=== PATIENT | female | born 1935 | race American Indian/Alaskan Native ===

== ENCOUNTER 2016-06-21 07:20 | Emergency (ER) | payer MEDICARE, MEDICAID ==
[2016-06-21 07:29] VITALS: BMI 33.2
[2016-06-21 07:32] VITALS: RESP 20
--- NOTE | 2016-06-21 08:06 | C.PDOC ---
History Of Present Illness 80 y/o female pmhx arthritis presents to the ED with complains of butt and hip pain. Pt states she was walking to the bathroom this morning when her legs felt suddenly weak and gave out, she gradually slid down the wall to the ground; witnessed by sister who is now at bedside. Pt now complaining of bilateral hip and butt pain; admits has had similar episode in the past. Pt also reports "feeling under the weather" x2 days with generalized body aches, feeling feverish and tired. Pt states her neighbor has the flu. Denies dizziness, numbness, SOB, cough, vomiting, diarrhea or any other complaints. Time Seen by Provider: 06/21/16 07:34 Chief Complaint (Nursing): Back Pain History Per: Patient History/Exam Limitations: no limitations Onset/Duration Of Symptoms: Hrs Current Symptoms Are (Timing): Still Present Quality Of Discomfort: "Pain" Severity: Mild Associated Symptoms: None Recent travel outside of the [place]: No Past Medical History Reviewed: Historical Data, Nursing Documentation, Vital Signs Vital Signs: Last Vital Signs Temp 99.1 F 06/21/16 09:55 Pulse 85 06/21/16 09:55 Resp 20 06/21/16 09:55 BP 92/59 L 06/21/16 09:55 Pulse Ox 98 06/21/16 09:55 - Medical History PMH: Arthritis, Back Problems, HTN Family History: States: Unknown Family Hx - Social History Hx Alcohol Use: No Hx Substance Use: No - Immunization History Hx Tetanus Toxoid Vaccination: No Hx Influenza Vaccination: No Hx Pneumococcal Vaccination: No Review Of Systems Except As Marked, All Systems Reviewed And Found Negative. Constitutional: Positive for: Fever, Other (body aches, fatigue) Respiratory: Negative for: Cough, Shortness of Breath Gastrointestinal: Negative for: Vomiting, Diarrhea Musculoskeletal: Positive for: Other (bilateral hip and butt pain) Neurological: Negative for: Numbness, Headache, Dizziness Physical Exam - Physical Exam Appears: Non-toxic, No Acute Distress Skin: Warm, Dry, No Rash Head: Atraumatic, Normacephalic Neck: Normal ROM, Supple Chest: Symmetrical, No Tenderness Cardiovascular: Rhythm Regular, No Murmur Respiratory: Normal Breath Sounds, No Rales, No Rhonchi, No Wheezing Gastrointestinal/Abdominal: Soft, No Tenderness Extremity: Normal ROM, Tenderness (mild nonfocal bilateral hip tenderness, sacral tenderness), No Deformity, Other (No ecchymosis, no hematoma) Pulses: Left Dorsalis Pedis: Normal, Right Dorsalis Pedis: Normal Neurological/Psych: Oriented x3, Normal Speech, Normal Motor, Normal Sensation ED Course And Treatment O2 Sat by Pulse Oximetry: 96 (on room air) Pulse Ox Interpretation: Normal Medical Decision Making Medical Decision Making: Plan: * XR bilateral hips * flu swab * ibuprofen Progress: Flu test was negative XRay reviewed by me and interpreted by Radiologist Bettye Mejia IMPRESSION:No radiographic evidence of acute fracture or dislocation. Moderate osteoarthritic degenerative changes. Patient remained alert and oriented in no distress. She reports pain mild at this time. I explain xray results and patient stable for discharge. Recommend analgesics as needed and to follow up with PCP Disposition Counseled Patient/Family Regarding: Diagnosis, Need For Followup, Rx Given - Disposition Referrals: Harish Ryan DO [Staff Provider] - Disposition: HOME/ ROUTINE Disposition Time: 09:43 Condition: STABLE Additional Instructions: Your Flu test was negative XRay shows arthritis otherwise no acute fracture Please take ibuprofen as needed for pain and rest Follow up with your primary or orthopedic if pain persists. Prescriptions: Ibuprofen [Motrin] 600 mg PO Q8 #30 tab Instructions: Hip Contusion (ED) - POA Present On Arrival: Falls Or Trauma - Clinical Impression Clinical Impression: Contusion of back, Contusion, hip - PA / SCRUB NURSE / Resident Statement MD/DO has reviewed & agrees with the documentation as recorded. - Scribe Statement The provider has reviewed the documentation as recorded by the Jose Segovia All medical record entries made by the Jose were at my direction and personally dictated by me. I have reviewed the chart and agree that the record accurately reflects my personal performance of the history, physical exam, medical decision making, and the department course for this patient. I have also personally directed, reviewed, and agree with the discharge instructions and disposition.
[2016-06-21 09:56] VITALS: BP 92/59; PULSE 85; TEMP 99.1
--- NOTE | 2016-06-21 10:06 | RAD ---
PROCEDURE: Radiographs of the pelvis and bilateral hips HISTORY: pt reports fall at home complains of pain COMPARISON: None. FINDINGS: BONES: Pelvis: Unremarkable. Right hip:No evidence of dislocation Left hip:Unremarkable. JOINTS: Right hip: Moderate osteoarthritic changes Left hip: Moderate osteoarthritic changes Sacroiliac Joints: Arthritic degenerative changes Pubic symphysis: Unremarkable. SOFT TISSUES: Normal. OTHER FINDINGS: None. IMPRESSION: No radiographic evidence of acute fracture or dislocation. Moderate osteoarthritic degenerative changes.
[2016-06-21 14:51] VITALS: O2SAT 96
== END 2016-06-21 10:17 | disposition home or self-care (01) ==
LOC: C.ER 07:20
DX: S70.02XA Contusion of left hip, initial encounter (principal); S70.01XA Contusion of right hip, initial encounter; S30.0XXA Contusion of lower back and pelvis, initial encounter; W18.39XA Other fall on same level, initial encounter; Y92.008 Other place in unspecified non-institutional (private) residence as the place of occurrence of the external cause

== ENCOUNTER 2016-06-21 19:02 | Emergency (ER) | payer MEDICARE, OTHER ==
[2016-06-21 19:02] VITALS: BMI 37.0
[2016-06-21] MEDS ORDERED: Sodium Chloride 0.9% 1,000 ML IV ONE (20:45)
[2016-06-21] MEDS ORDERED: Iohexol 240 (50 ml) PO STA (20:45)
--- NOTE | 2016-06-21 20:48 | C.PDOC ---
History Of Present Illness 80 y/o female with PMHx of HTN, hyperlipidemia, and DM, returns to ED after emergency room evaluation for back pain earlier today. Patient reportedly sustained a mild "fall" this morning, stating that her legs gave out, causing her to land on the floor on her buttocks/hip. Patient was discharged with Motrin after negative x-rays earlier today. Patient complains of muscle spasms that have been persistent today, and reports abdominal pain that radiates to her lower back. Patient reports she has not had a bowel movement for 7 days but notes that she has been passing gas w/o difficulty. She notes her last meal was yesterday. Patient describes abdominal pain as 8/10 and cramping. Patient also states she had a subjective fever last week which has since resolved. Otherwise , denies chills, headache, chest pain, SOB, nausea, vomiting, diarrhea, urinary symptoms. Denies prior abdominal surgeries. Patient notes she is currently taking Plavix but is unsure why. Denies recent travel. Time Seen by Provider: 06/21/16 19:50 Chief Complaint (Nursing): Abdominal Pain History Per: Patient History/Exam Limitations: no limitations Onset/Duration Of Symptoms: Hrs, Persistent Current Symptoms Are (Timing): Still Present Pain Scale Rating Of: 8 Location Of Pain/Discomfort: Diffuse Radiation Of Pain To:: Back Quality Of Discomfort: Cramping, "Pain" Associated Symptoms: denies: Fever, Chills, Vomiting, Diarrhea, Urinary Symptoms Last Bowel Movement: Days Ago Recent travel outside of the [place]: No Abnormal Vaginal Bleeding: No Past Medical History Reviewed: Historical Data, Nursing Documentation, Vital Signs Vital Signs: Last Vital Signs Temp 98.7 F 06/21/16 19:20 Pulse 102 H 06/21/16 19:20 Resp 18 06/21/16 19:20 BP 98/67 L 06/21/16 19:20 Pulse Ox 97 06/22/16 00:31 - Medical History PMH: Arthritis, Back Problems, HTN Family History: States: Unknown Family Hx - Social History Hx Alcohol Use: No Hx Substance Use: No - Immunization History Hx Tetanus Toxoid Vaccination: No Hx Influenza Vaccination: No Hx Pneumococcal Vaccination: No Review Of Systems Except As Marked, All Systems Reviewed And Found Negative. Constitutional: Positive for: Malaise. Negative for: Fever, Chills Cardiovascular: Negative for: Chest Pain Respiratory: Negative for: Shortness of Breath Gastrointestinal: Positive for: Abdominal Pain, Constipation. Negative for: Vomiting, Diarrhea Musculoskeletal: Positive for: Back Pain Skin: Negative for: Rash Physical Exam - Physical Exam Appears: Non-toxic, In Acute Distress Skin: Normal Color, Warm, Dry Head: Atraumatic, Normacephalic Oral Mucosa: Moist Chest: Symmetrical Cardiovascular: Rhythm Regular Respiratory: Normal Breath Sounds, No Rales, No Rhonchi, No Wheezing Gastrointestinal/Abdominal: Bowel Sounds (slightly diminished), Soft, Tenderness (mild, to deep palpation ), Distention, No Guarding, No Rebound, Hernia (umbilical, reducible) Back: Normal Inspection Extremity: Normal ROM, Capillary Refill (< 2 sec. ) Neurological/Psych: Oriented x3, Normal Speech, Normal Cognition ED Course And Treatment - Laboratory Results Result Diagrams: 06/21/16 22:10 06/21/16 22:10 Lab Interpretation: Abnormal (WBC 1.7 with 78% segs, BUN 36, Cr 1.7, HCO3 17, mild elevation of LFTs compared to prior exam) O2 Sat by Pulse Oximetry: 97 (RA) Pulse Ox Interpretation: Normal - CT Scan/US CT Abdomen/Pelvis Other Rad Studies (CT/US): Read By Radiologist, Radiology Report Reviewed CT/US Interpretation: IMPRESSION: Early/partial small bowel obstruction; cardiomegaly and atherosclerotic disease;. patchy airspace disease at both lung bases; fecal impaction Progress Note: Labs, UA, CT abdomen/pelvis ordered. IVFs given. Reevaluation Time: 00:36 Reassessment Condition: Unchanged (Patient continues to be in distress. She has passed a cpious amount of a yellowish brown semi-liquid stool. She continues to c/o abdominal pain but her abdomen remains soft. VBG ordered to check lactate to r/o ischemic bowel.) - Physician Consult Information Time Consulting Physician Contacted: 00:37 Physician Contacted: Awais Springer Outcome Of Conversation: Patient to be admitted for evaluation and treatment of abdominal pain, possible bowel obstruction or ischemic bowel. Disposition - Disposition Disposition: HOSPITALIZED Disposition Time: 00:38 Condition: SERIOUS - POA Present On Arrival: None - Clinical Impression Clinical Impression: Abdominal pain, Partial small bowel obstruction - Scribe Statement The provider has reviewed the documentation as recorded by the Jose Vega Provider Scribe Attestation: All medical record entries made by the Scribe were at my direction and personally dictated by me. I have reviewed the chart and agree that the record accurately reflects my personal performance of the history, physical exam, medical decision making, and the department course for this patient. I have also personally directed, reviewed, and agree with the discharge instructions and disposition.
[2016-06-21] MEDS ORDERED: Iohexol 240 (50 ml) ONE (21:36)
[2016-06-21 22:22] LABS: BASO % 0.7 % (0.0-2.0); EOS % 0.4 % (0.0-4.0); LYMPH # 0.3 K/uL (1.0-4.3); LYMPH % 19.3 % (20.0-40.0); MEAN CELL VOLUME 87.8 fL (81.0-99.0); MEAN CORPUSCULAR HEMOGLOBIN 28.5 pg (27.0-31.0); MEAN CORPUSCULAR HGB CONC 32.5 g/dL (33.0-37.0); MEAN PLATELET VOLUME 8.7 fL (7.2-11.7); MONO % 0.7 % (0.0-10.0); NRBC % 0.8 % (0.0-2.0); POTASSIUM 3.3 mmol/L (3.6-5.2)
[2016-06-21 22:24] LABS: ALB/GLOB RATIO 1.2 (1.0-2.1); BILIRUBIN,TOTAL 0.8 mg/dL (0.2-1.3); TOTAL PROTEIN 6.7 g/dL (6.3-8.3)
[2016-06-21 22:25] LABS: CALCIUM 8.6 mg/dl (8.6-10.4)
[2016-06-21 22:28] LABS: WHITE BLOOD COUNT 1.7 K/uL (4.8-10.8)
[2016-06-21 22:30] LABS: PLATELET COUNT 118 K/uL (130-400)
--- NOTE | 2016-06-21 23:51 | CT ---
EXAM: CT Abdomen and Pelvis Without Intravenous Contrast CLINICAL HISTORY: 80 years old, female; Pain; Abdominal pain; Generalized; Additional info: Abd pain TECHNIQUE: Axial computed tomography images of the abdomen and pelvis without intravenous contrast. Coronal and sagittal reformatted images were created and reviewed. EXAM DATE/TIME: 06/21/2016 8:46 PM COMPARISON: There are no prior studies for comparison. FINDINGS: Artifacts: Motion artifact degrades image quality. Lower thorax: The heart is enlarged. Aorta is ectatic. There is atelectasis and scarring at the lung bases. There is airspace disease at both lung bases. There is oral contrast in the mid and distal esophagus. ABDOMEN: Liver: There is fatty infiltration of the liver. Gallbladder and bile ducts: Gallbladder is distended. Common bile duct is poorly demonstrated. Pancreas: Pancreas is mildly atrophic. Spleen: There is a cyst in the spleen. Adrenals: There is thickening of both adrenals. Kidneys and ureters: Kidneys and ureters are unremarkable. Stomach and bowel: Stomach is partially distended. Rotation is normal. Mid small bowel is mildly dilated. There are air fluid levels. Distal small bowel is normal in caliber. Terminal ileum is unremarkable. Appendix is unremarkable.Colon is incompletely distended which limits evaluation.There is diverticulosis. There is a fecal bolus in the rectum. Appendix: See stomach and bowel PELVIS: Bladder: unremarkable Reproductive: Uterus and adnexal structures are unremarkable. ABDOMEN and PELVIS: Intraperitoneal space: .There is no significant fluid.There is no free air. Bones/joints: Bony structures are osteopenic. There are degenerative changes. There is retrolisthesis T11 on T12, T12-L1 and L1 on L2. There is narrowing of the associated disc spaces. There is anterolisthesis L5 on S1 with degenerative change. 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 Soft tissues: There is a fat-containing umbilical hernia. There is a fat-containing supraumbilical ventral hernia. Vasculature: There are multiple phleboliths. Aorta is ectatic. There are vascular calcifications. There is infrarenal dilatation, 2.8 cm in maximal diameter. Lymph nodes: unremarkable IMPRESSION: Early/partial small bowel obstruction; cardiomegaly and atherosclerotic disease; patchy airspace disease at both lung bases; fecal impaction Additional findings as described above.
[2016-06-22] MEDS ORDERED: HYDROmorphone 1 mg/ml ISec IVP STA (00:33)
[2016-06-22] MEDS ORDERED: Dextrose 50% SYRINGE Inj (50 ml) ONE ×2 (01:08→01:13)
[2016-06-22] MEDS ORDERED: Sodium Bicarbonate 8.4% 150 MEQ in Dextrose 5% In Water 1,000 ML IV SCH (02:15)
[2016-06-22] MEDS ORDERED: Piperacill/Tazo 3.375gm in Dex 50 ML IVPB SCH (02:15)
[2016-06-22] MEDS ORDERED: Sodium Bicarbonate (8.4%) 50 Meq Syringe IV ONE (02:54)
[2016-06-22] MEDS ORDERED: Dextrose 50% SYRINGE Inj (50 ml) IV ONE (02:54)
[2016-06-22 02:55] LABS: NEUTROPHIL 76 % (50-75); NUCLEATED RED BLOOD CELL 1 % (0-0); TOTAL CELLS COUNTED 100
[2016-06-22 02:56] LABS: GIANT PLATELETS PRESENT; LARGE PLATELETS PRESENT
--- NOTE | 2016-06-22 02:59 | CP.PCM.PRO ---
<Khadra Mcdaniel DO - Last Filed: 06/22/16 06:10> Pronouncement of Note - Clinical Findings Physical Exam: Absent Peripheral Pulses{Carotid & Femoral}, Absent Heart & Breath Sounds, No Pupillary Light Reflex, Pupils Fixed & Dilated - Pronouncement Time Time of Pronouncement of : 02:55 - Notifications Pronouncement Notifications: Family Notified, Atending Notified - [place] [id number] <Awais Springer P - Last Filed: 06/25/16 20:25> Attending/Attestation - Attestation I have personally seen and examined this patient.: Yes I have fully participated in the care of the patient.: Yes I have reviewed all pertinent clinical information: Yes
[2016-06-22 03:46] VITALS: TEMP 98.2
[2016-06-22 03:50] VITALS: BP 127/32
[2016-06-22 04:00] VITALS: PULSE 75; RESP 25; O2SAT 93
[2016-06-22 05:59] LABS: ABG MECHANICAL RATE 14; ATERIAL BLOOD GAS PEEP 5; DRAW SITE RFEM
--- NOTE | 2016-06-22 06:11 | CP.PCM.HP ---
<VioletaKhadra borges DO - Last Filed: 06/22/16 08:56> History of Present Illness - History of Present Illness History of Present Illness: Patient is a 80 year old female with past medical history of diabetes, HTN, HLD who initially presented with complaint of abdominal pain. History is obtained from the chart. Patient stated the abdominal pain was cramping in nature and the pain radiated to lower back. Patient reported constipation for 7 days but did report passing gas. Patient had been previously seen in the ER for buttock pain after a fall at home. Otherwise, denies chills, headache, chest pain, SOB , nausea, vomiting, diarrhea, urinary symptoms. Denies prior abdominal surgeries. Patient notes she is currently taking Plavix but is unsure why. Denies recent travel. At time of examination, patient was intubated in the ER. Patient had been found by ER nurse to have heart rate in 40s. Fingerstick at that time showed glucose of <20. Patient was given IV dextrose but continued to be hypoglycemic. CPR was initiated and patient was given atropine and epinephrine. Pulses returned initially following intervention and HR was 120. Patient became bradycardic again in the ER and CPR was again initiated. ABG was checked and lactate was 17.4. Patient was given multiple rounds of bicarb. There was no ROSC in fourth code and patient was pronounced at 2:55AM on . Examination was conducted after first code and ROSC Present on Admission - Present on Admission Any Indicators Present on Admission: No Review of Systems - Review of Systems Systems not reviewed;Unavailable: Acuity of Condition Past Patient History - Past Social History Smoking Status: Never Smoked - CARDIAC Hx Hypertension: Yes - ENDOCRINE/METABOLIC Hx Endocrine Disorders: Yes Hx Diabetes Mellitus Type 2: Yes - MUSCULOSKELETAL/RHEUMATOLOGICAL Hx Arthritis: Yes - PSYCHIATRIC Hx Substance Use: No - SURGICAL HISTORY Hx Surgeries: No - ANESTHESIA Hx Anesthesia: No Meds Allergies/Adverse Reactions: Allergies Allergy/AdvReac Type Severity Reaction Status Date / Time No Known Allergies Allergy Verified 06/21/16 19:27 Physical Exam - Constitutional Additional comments: intubated - Eye Exam Additional comments: pupils fixed and dilated - ENT Exam Additional comments: OG tube with dark/ blood tinged secretions - Respiratory Exam Additional comments: ventilator sounds throughout - Cardiovascular Exam Cardiovascular Exam: +S1, +S2 - GI/Abdominal Exam GI & Abdominal Exam: Distended Additional comments: no bowel sounds were auscultated reducible umbilical hernia - Extremities Exam Extremities exam: Positive for: pedal edema (bilateral lower extremity edema) Results - Vital Signs Recent Vital Signs: Last Vital Signs Temp 98.2 F 06/21/16 23:35 Pulse 75 06/22/16 03:59 Resp 25 H 06/22/16 03:59 BP 127/32 L 06/22/16 03:50 Pulse Ox 93 L 06/22/16 03:59 - Labs Result Diagrams: 06/21/16 22:10 06/21/16 22:10 Labs: Laboratory Results - last 24 hr 06/22/16 06/22/16 06/22/16 01:06 01:08 01:19 Puncture Site pCO2 pO2 HCO3 ABG pH ABG Total CO2 ABG O2 Saturation ABG Base Excess Saqib Test ABG Potassium A-a O2 Difference Respiratory Index Glucose Lactate Mechanical Rate FiO2 Tidal Volume PEEP Crit Value Called To Crit Value Called By Crit Value Read Back Blood Gas Notified Time Sodium Potassium Chloride Carbon Dioxide Anion Gap BUN Creatinine Est GFR ( Amer) Est GFR (Non-Af Amer) POC Glucose (mg/dL) < 20 L* < 20 L* 124 H Random Glucose Calcium Total Bilirubin AST ALT Alkaline Phosphatase Total Protein Albumin Globulin Albumin/Globulin Ratio Arterial Blood Potassium 06/22/16 06/22/16 06/22/16 01:30 01:44 01:53 Puncture Site Rfem pCO2 52 H pO2 115 H HCO3 8.0 L* ABG pH 6.93 L* ABG Total CO2 12.5 L ABG O2 Saturation 98.9 H ABG Base Excess -21.6 L Saqib Test Na ABG Potassium A-a O2 Difference 533.0 Respiratory Index 4.6 Glucose Lactate Mechanical Rate 14 FiO2 100.0 Tidal Volume 500 PEEP 5 Crit Value Called To Dr. gonzales Crit Value Called By Ginny inspector mechanical Crit Value Read Back Y Blood Gas Notified Time 148 Sodium Cancelled Potassium Cancelled Chloride Cancelled Carbon Dioxide Cancelled Anion Gap Cancelled BUN Cancelled Creatinine Cancelled Est GFR ( Amer) Cancelled Est GFR (Non-Af Amer) Cancelled POC Glucose (mg/dL) 118 H Random Glucose Cancelled Calcium Cancelled Total Bilirubin Cancelled AST Cancelled ALT Cancelled Alkaline Phosphatase Cancelled Total Protein Cancelled Albumin Cancelled Globulin Cancelled Albumin/Globulin Ratio Cancelled Arterial Blood Potassium 06/22/16 02:25 Puncture Site Bydr gnozales pCO2 82 H* pO2 15 L* HCO3 ABG pH < 6.80 L* ABG Total CO2 ABG O2 Saturation 13.6 L ABG Base Excess Saqib Test Na ABG Potassium 5.0 A-a O2 Difference 596.0 Respiratory Index 39.7 Glucose 360 H Lactate 17.4 H* Mechanical Rate FiO2 100.0 Tidal Volume PEEP Crit Value Called To Dr gonzales Crit Value Called By Joce arambula/rt Crit Value Read Back Y Blood Gas Notified Time 240 Sodium 150.0 H Potassium Chloride 113.0 H Carbon Dioxide Anion Gap BUN Creatinine Est GFR ( Amer) Est GFR (Non-Af Amer) POC Glucose (mg/dL) Random Glucose Calcium Total Bilirubin AST ALT Alkaline Phosphatase Total Protein Albumin Globulin Albumin/Globulin Ratio Arterial Blood Potassium 5.0 Assessment & Plan - Assessment and Plan (Free Text) Assessment: Abdominal Pain Patient was found to have partial or early small bowel obstruction on CT scan with PO contrast It is possible that patient's abdominal pain was due to ischemic bowel. Anion Gap metabolic acidosis Patient was found to have anion gap metabolic acidosis with severe lactic acidosis Cardiopulmonary arrest secondary to above mentioned conditions The patient after multiple rounds of CPR with epinephrine, bicarbonate, and dextrose given. <Awais Gonzales P - Last Filed: 06/25/16 20:28> Results - Vital Signs Recent Vital Signs: Last Vital Signs Temp 98.2 F 06/21/16 23:35 Pulse 75 06/22/16 03:59 Resp 25 H 06/22/16 03:59 BP 127/32 L 06/22/16 03:50 Pulse Ox 93 L 06/22/16 03:59 - Labs Result Diagrams: 06/21/16 22:10 06/21/16 22:10 Attending/Attestation - Attestation I have personally seen and examined this patient.: Yes I have fully participated in the care of the patient.: Yes I have reviewed all pertinent clinical information: Yes
--- NOTE | 2016-06-22 08:46 | RAD ---
HISTORY: post intubation bed 8b COMPARISON: 09/04/2012 FINDINGS: LUNGS: Endotracheal tube extending into the mid thoracic trachea. Exact position in relationship to the stoney is limited given suboptimal technique. Repeat study may be helpful. NG tube extending into the stomach. Suggestion of external lead seen projecting over the bilateral lower danielle thoraces. Moderate to severe diffuse bilateral venous congestion. Small nodular density in the left midlung zone. Right hilar prominence. PLEURA: As above. CARDIOVASCULAR: Cardiomegaly. OSSEOUS STRUCTURES: Degenerative changes in the spine and shoulders. VISUALIZED UPPER ABDOMEN: Normal. OTHER FINDINGS: None. IMPRESSION: Endotracheal tube extending into the mid thoracic trachea. Exact position in relationship to the stoney is limited given suboptimal technique. Repeat study may be helpful. NG tube extending into the stomach. Suggestion of external lead seen projecting over the bilateral lower danielle thoraces. Moderate to severe diffuse bilateral venous congestion. Small nodular density in the left midlung zone. Right hilar prominence.
--- NOTE | 2016-06-22 09:16 | CP.PCM.DIS ---
<Khadra Mcdaniel DO - Last Filed: 06/22/16 09:13> Provider - Provider Date of Admission: 06/22/16 00:39 Attending physician: Awais Gonzales MD Time Spent in preparation of Discharge (in minutes): 40 Diagnosis - Discharge Diagnosis (1) Partial obstruction of small intestine Status: Acute Comment: early small bowel obstruction on CT scan with PO contrast, possible bowel ischemia Hospital Course - Lab Results Lab Results: Most Recent Lab Values WBC 1.7 K/uL (4.8-10.8) L* D 06/21/16 22:10 RBC 3.99 Mil/uL (3.80-5.20) 06/21/16 22:10 Hgb 11.4 g/dL (11.0-16.0) 06/21/16 22:10 Hct 35.0 % (34.0-47.0) 06/21/16 22:10 MCV 87.8 fL (81.0-99.0) 06/21/16 22:10 MCH 28.5 pg (27.0-31.0) 06/21/16 22:10 MCHC 32.5 g/dL (33.0-37.0) L 06/21/16 22:10 RDW 15.0 % (11.5-14.5) H 06/21/16 22:10 Plt Count 118 K/uL (130-400) L D 06/21/16 22:10 MPV 8.7 fL (7.2-11.7) 06/21/16 22:10 Neut % (Auto) 78.9 % (50.0-75.0) H 06/21/16 22:10 Lymph % (Auto) 19.3 % (20.0-40.0) L 06/21/16 22:10 [place] % (Auto) 0.7 % (0.0-10.0) 06/21/16 22:10 Eos % (Auto) 0.4 % (0.0-4.0) 06/21/16 22:10 Baso % (Auto) 0.7 % (0.0-2.0) 06/21/16 22:10 Neut # 1.3 K/uL (1.8-7.0) L 06/21/16 22:10 Lymph # 0.3 K/uL (1.0-4.3) L 06/21/16 22:10 [place] # 0.0 K/uL (0.0-0.8) 06/21/16 22:10 Eos # 0.0 K/uL (0.0-0.7) 06/21/16 22:10 Baso # 0.0 K/uL (0.0-0.2) 06/21/16 22:10 Neutrophils % (Manual) 76 % (50-75) H 06/21/16 22:10 Band Neutrophils % 7 % (0-2) H 06/21/16 22:10 Lymphocytes % (Manual) 17 % (20-40) L 06/21/16 22:10 Nucleated RBC % 1 % (0-0) H 06/21/16 22:10 Platelet Estimate Slightly decreased (NORMAL) L 06/21/16 22:10 Large Platelets Present 06/21/16 22:10 Giant Platelets Present 06/21/16 22:10 Anisocytosis (manual) Slight 06/21/16 22:10 Puncture Site Bydr christian 06/22/16 02:25 pCO2 82 mm/Hg (35-45) H* 06/22/16 02:25 pO2 15 mm/Hg (80-100) L* 06/22/16 02:25 HCO3 8.0 mmol/L (21-28) L* 06/22/16 01:44 ABG pH < 6.80 (7.35-7.45) L* 06/22/16 02:25 ABG Total CO2 12.5 mmol/L (22-28) L 06/22/16 01:44 ABG O2 Saturation 13.6 % (95-98) L 06/22/16 02:25 ABG Base Excess -21.6 mmol/L (-2.0-3.0) L 06/22/16 01:44 Saqib Test Na 06/22/16 02:25 ABG Potassium 5.0 mmol/L (3.6-5.2) 06/22/16 02:25 A-a O2 Difference 596.0 mm/Hg 06/22/16 02:25 Respiratory Index 39.7 06/22/16 02:25 Sodium 150.0 mmol/l (132-148) H 06/22/16 02:25 Chloride 113.0 mmol/L (98-107) H 06/22/16 02:25 Glucose 360 mg/dl (65-105) H 06/22/16 02:25 Lactate 17.4 mmol/L (0.7-2.1) H* 06/22/16 02:25 Mechanical Rate 14 06/22/16 01:44 FiO2 100.0 % 06/22/16 02:25 Tidal Volume 500 06/22/16 01:44 PEEP 5 06/22/16 01:44 Crit Value Called To Dr gonzales 06/22/16 02:25 Crit Value Called By Joce arambula/rt 06/22/16 02:25 Crit Value Read Back Y 06/22/16 02:25 Blood Gas Notified Time 240 06/22/16 02:25 Sodium 142 mmol/L (132-148) 06/21/16 22:10 Potassium 3.3 mmol/L (3.6-5.2) L 06/21/16 22:10 Chloride 104 mmol/L (98-107) 06/21/16 22:10 Carbon Dioxide 17 mmol/L (22-30) L 06/21/16 22:10 Anion Gap 24 (10-20) H 06/21/16 22:10 BUN 36 mg/dL (7-17) H 06/21/16 22:10 Creatinine 1.7 MG/DL (0.7-1.2) H 06/21/16 22:10 Est GFR ( Amer) 35 06/21/16 22:10 Est GFR (Non-Af Amer) 29 06/21/16 22:10 POC Glucose (mg/dL) 118 mg/dL (65-110) H 06/22/16 01:53 Random Glucose 76 mg/dL (65-105) 06/21/16 22:10 Calcium 8.6 mg/dl (8.6-10.4) 06/21/16 22:10 Total Bilirubin 0.8 mg/dL (0.2-1.3) 06/21/16 22:10 AST 105 U/L (14-36) H D 06/21/16 22:10 ALT 48 U/L (9-52) 06/21/16 22:10 Alkaline Phosphatase 80 U/L (38-126) 06/21/16 22:10 Total Protein 6.7 g/dL (6.3-8.3) 06/21/16 22:10 Albumin 3.7 g/dL (3.5-5.0) 06/21/16 22:10 Globulin 3.1 gm/dL (2.2-3.9) 06/21/16 22:10 Albumin/Globulin Ratio 1.2 (1.0-2.1) 06/21/16 22:10 Lipase 45 U/L (23-300) 06/21/16 22:10 Arterial Blood Potassium 5.0 mmol/L (3.6-5.2) 06/22/16 02:25 - Hospital Course Hospital Course: Patient is a 80 year old female with past medical history of diabetes, HTN, HLD who initially presented with complaint of abdominal pain. History is obtained from the chart. Patient stated the abdominal pain was cramping in nature and the pain radiated to lower back. Patient reported constipation for 7 days but did report passing gas. Patient had been previously seen in the ER for buttock pain after a fall at home. Otherwise, denies chills, headache, chest pain, SOB , nausea, vomiting, diarrhea, urinary symptoms. Denies prior abdominal surgeries. Patient notes she is currently taking Plavix but is unsure why. Denies recent travel. At time of examination, patient was intubated in the ER. Patient had been found by ER nurse to have heart rate in 40s. Fingerstick at that time showed glucose of <20. Patient was given IV dextrose but continued to be hypoglycemic. CPR was initiated and patient was given atropine and epinephrine. Pulses returned initially following intervention and HR was 120. Patient became bradycardic again in the ER and CPR was again initiated. ABG was checked and lactate was 17.4. Patient was given multiple rounds of bicarb. There was no ROSC in fourth code and patient was pronounced at 2:55AM on . Examination was conducted after first code and ROSC Abdominal Pain Patient was found to have partial or early small bowel obstruction on CT scan with PO contrast It is possible that patient's abdominal pain was due to ischemic bowel. Anion Gap metabolic acidosis Patient was found to have anion gap metabolic acidosis with severe lactic acidosis Cardiopulmonary arrest secondary to above mentioned conditions The patient after multiple rounds of CPR with epinephrine, bicarbonate, and dextrose given. Discharge Exam - Eye Exam Additional comments: pupils fixed and dilated - ENT Exam Additional comments: OGT with dark/ blood tinged secretions - Respiratory Exam Additional comments: absent breath sounds - Cardiovascular Exam Additional comments: absent heart sounds - GI/Abdominal Exam Additional comments: absent bowel sounds - Extremities Exam Extremities exam: pedal edema - Neurological Exam Additional comments: no response to painful stimuli Discharge Plan - Follow Up Plan Condition: Disposition: WITH WITHOUT AUTOPSY <Awais Gonzales P - Last Filed: 06/25/16 20:28> Hospital Course - Lab Results Lab Results: Most Recent Lab Values WBC 1.7 K/uL (4.8-10.8) L* D 06/21/16 22:10 RBC 3.99 Mil/uL (3.80-5.20) 06/21/16 22:10 Hgb 11.4 g/dL (11.0-16.0) 06/21/16 22:10 Hct 35.0 % (34.0-47.0) 06/21/16 22:10 MCV 87.8 fL (81.0-99.0) 06/21/16 22:10 MCH 28.5 pg (27.0-31.0) 06/21/16 22:10 MCHC 32.5 g/dL (33.0-37.0) L 06/21/16 22:10 RDW 15.0 % (11.5-14.5) H 06/21/16 22:10 Plt Count 118 K/uL (130-400) L D 06/21/16 22:10 MPV 8.7 fL (7.2-11.7) 06/21/16 22:10 Neut % (Auto) 78.9 % (50.0-75.0) H 06/21/16 22:10 Lymph % (Auto) 19.3 % (20.0-40.0) L 06/21/16 22:10 [place] % (Auto) 0.7 % (0.0-10.0) 06/21/16 22:10 Eos % (Auto) 0.4 % (0.0-4.0) 06/21/16 22:10 Baso % (Auto) 0.7 % (0.0-2.0) 06/21/16 22:10 Neut # 1.3 K/uL (1.8-7.0) L 06/21/16 22:10 Lymph # 0.3 K/uL (1.0-4.3) L 06/21/16 22:10 [place] # 0.0 K/uL (0.0-0.8) 06/21/16 22:10 Eos # 0.0 K/uL (0.0-0.7) 06/21/16 22:10 Baso # 0.0 K/uL (0.0-0.2) 06/21/16 22:10 Neutrophils % (Manual) 76 % (50-75) H 06/21/16 22:10 Band Neutrophils % 7 % (0-2) H 06/21/16 22:10 Lymphocytes % (Manual) 17 % (20-40) L 06/21/16 22:10 Monocytes % (Manual) TEST NOT PERFORMED 06/21/16 22:10 Nucleated RBC % 1 % (0-0) H 06/21/16 22:10 Platelet Estimate Slightly decreased (NORMAL) L 06/21/16 22:10 Large Platelets Present 06/21/16 22:10 Giant Platelets Present 06/21/16 22:10 Anisocytosis (manual) Slight 06/21/16 22:10 Smear Path Review 06/21/16 22:10 Puncture Site Bydr [email or web address] 06/22/16 02:25 pCO2 82 mm/Hg (35-45) H* 06/22/16 02:25 pO2 15 mm/Hg (80-100) L* 06/22/16 02:25 HCO3 8.0 mmol/L (21-28) L* 06/22/16 01:44 ABG pH < 6.80 (7.35-7.45) L* 06/22/16 02:25 ABG Total CO2 12.5 mmol/L (22-28) L 06/22/16 01:44 ABG O2 Saturation 13.6 % (95-98) L 06/22/16 02:25 ABG Base Excess -21.6 mmol/L (-2.0-3.0) L 06/22/16 01:44 Saqib Test Na 06/22/16 02:25 ABG Potassium 5.0 mmol/L (3.6-5.2) 06/22/16 02:25 A-a O2 Difference 596.0 mm/Hg 06/22/16 02:25 Respiratory Index 39.7 06/22/16 02:25 Sodium 150.0 mmol/l (132-148) H 06/22/16 02:25 Chloride 113.0 mmol/L (98-107) H 06/22/16 02:25 Glucose 360 mg/dl (65-105) H 06/22/16 02:25 Lactate 17.4 mmol/L (0.7-2.1) H* 06/22/16 02:25 Mechanical Rate 14 06/22/16 01:44 FiO2 100.0 % 06/22/16 02:25 Tidal Volume 500 06/22/16 01:44 PEEP 5 06/22/16 01:44 Crit Value Called To Dr gonzales 06/22/16 02:25 Crit Value Called By Joce arambula/rt 06/22/16 02:25 Crit Value Read Back Y 06/22/16 02:25 Blood Gas Notified Time 240 06/22/16 02:25 Sodium 142 mmol/L (132-148) 06/21/16 22:10 Potassium 3.3 mmol/L (3.6-5.2) L 06/21/16 22:10 Chloride 104 mmol/L (98-107) 06/21/16 22:10 Carbon Dioxide 17 mmol/L (22-30) L 06/21/16 22:10 Anion Gap 24 (10-20) H 06/21/16 22:10 BUN 36 mg/dL (7-17) H 06/21/16 22:10 Creatinine 1.7 MG/DL (0.7-1.2) H 06/21/16 22:10 Est GFR ( Amer) 35 06/21/16 22:10 Est GFR (Non-Af Amer) 29 06/21/16 22:10 POC Glucose (mg/dL) 118 mg/dL (65-110) H 06/22/16 01:53 Random Glucose 76 mg/dL (65-105) 06/21/16 22:10 Calcium 8.6 mg/dl (8.6-10.4) 06/21/16 22:10 Total Bilirubin 0.8 mg/dL (0.2-1.3) 06/21/16 22:10 AST 105 U/L (14-36) H D 06/21/16 22:10 ALT 48 U/L (9-52) 06/21/16 22:10 Alkaline Phosphatase 80 U/L (38-126) 06/21/16 22:10 Total Protein 6.7 g/dL (6.3-8.3) 06/21/16 22:10 Albumin 3.7 g/dL (3.5-5.0) 06/21/16 22:10 Globulin 3.1 gm/dL (2.2-3.9) 06/21/16 22:10 Albumin/Globulin Ratio 1.2 (1.0-2.1) 06/21/16 22:10 Lipase 45 U/L (23-300) 06/21/16 22:10 Arterial Blood Potassium 5.0 mmol/L (3.6-5.2) 06/22/16 02:25 Attending/Attestation - Attestation I have personally seen and examined this patient.: Yes I have fully participated in the care of the patient.: Yes I have reviewed all pertinent clinical information, including history, physical exam and plan: Yes
== END 2016-06-22 06:21 ==
LOC: C.ER 19:02 → UNDOADMIN 06-22 00:39 → C.9E 06-22 00:39 → C.9I 06-22 01:34 → UNDODISIN 06-22 02:55
DX: K56.69 Other intestinal obstruction (principal); I46.9 Cardiac arrest, cause unspecified
CPT/HCPCS: 31500; 31720; 71010; 74176; 80053; 82803; 82948; 83690; 85025; 92950; 94002; 96374; 99285; J0171; J1170; J7040; Q9966